=== PATIENT | female | born 1980 | race Caucasian/White ===

== ENCOUNTER 2019-10-12 13:38 | Emergency (ER) | payer MEDICAID ==
[~2019-10-12] VITALS: Ht 170.2 cm; Wt 116.0 kg
[2019-10-12 13:56] VITALS: BP 152/99
[2019-10-12] MEDS ORDERED: ipratropium/albuterol 3ml nebule NEB ONE (16:15)
[2019-10-12] MEDS ORDERED: PRED20TA PO (16:46)
[2019-10-12] MEDS ORDERED: ALBU8HFA PO (16:46)
[2019-10-12] MEDS ORDERED: TAM75C PO (16:46)
== END 2019-10-12 16:57 | disposition home or self-care (01) ==
LOC: ER 13:40
DX: J06.9 Acute upper respiratory infection, unspecified (principal); J45.901 Unspecified asthma with (acute) exacerbation; Z79.899 Other long term (current) drug therapy
CPT/HCPCS: 71045; 87502; 87503; 94640; 94760; 99284

== ENCOUNTER → 2020-01-02 | Emergency (ER) | payer MEDICAID ==
[~2020-01-02] VITALS: Ht 170.2 cm; Wt 113.6 kg
[2020-01-02 14:09] VITALS: BP 114/90
[2020-01-02 15:48] LABS: BASOPHILS # (AUTO) 0.1 X10'3 (0-0.2); BASOPHILS % (AUTO) 1.1 % (0-1); EOSINOPHILS # (AUTO) 0.3 X10'3 (0-0.9); EOSINOPHILS % (AUTO) 2.8 % (0-6); HEMATOCRIT 50.4 % (35.0-45.0); HEMOGLOBIN 16.5 g/dl (12.0-16.0); LYMPHOCYTES # (AUTO) 1.9 X10'3 (1.1-4.8); LYMPHOCYTES % (AUTO) 18.3 % (21-51); MEAN CORPUSCULAR HEMOGLOBIN 30.3 PG (27.0-31.0); MEAN CORPUSCULAR HGB CONC 32.8 g/dL (33.0-36.5); MEAN CORPUSCULAR VOLUME 92.2 FL (78-98); MEAN PLATELET VOLUME 7.7 FL (7.4-10.4); MONOCYTES # (AUTO) 0.7 X10'3 (0-0.9); MONOCYTES % (AUTO) 6.5 % (2-12); NEUTROPHILS # (AUTO) 7.3 X10'3 (1.8-7.7); NEUTROPHILS % (AUTO) 71.3 % (42-75); PLATELET COUNT 457 X10'3 (140-440); RED BLOOD COUNT 5.46 X10'6 (4.20-5.60); RED CELL DISTRIBUTION WIDTH 14.1 % (11.5-14.5); WHITE BLOOD COUNT 10.3 X10'3 (4.5-11.0)
[2020-01-02 15:59] LABS: ALANINE AMINOTRANSFERASE 19 U/L (12-78); ALBUMIN 4.1 G/DL (3.4-5.0); ALBUMIN/GLOBULIN RATIO 0.8 (1.1-1.5); ALKALINE PHOSPHATASE 122 IU/L (46-116); ANION GAP 12 (8-16); ASPARTATE AMINO TRANSFERASE 12 U/L (10-37); BILIRUBIN,TOTAL 0.3 MG/DL (0.1-1.0); BLOOD UREA NITROGEN 13 MG/DL (7-18); BUN/CREATININE RATIO 9.8 (6.6-38.0); CALCIUM 9.7 MG/DL (8.5-10.1); CHLORIDE 102 MMOL/L (99-107); CREATININE 1.32 MG/DL (0.40-0.90); GLUCOSE 103 MG/DL (70-104); POTASSIUM 3.9 MMOL/L (3.5-5.1); SODIUM 142 MMOL/L (135-145); TOTAL CARBON DIOXIDE 27.8 MMOL/L (24-32); eGFR 44 ML/MIN
[2020-01-02 16:05] LABS: BETA HCG,QUANTITATIVE < 1.0 mIU/ml; C-REACTIVE PROTEIN 1.59 MG/DL (0.0-0.5)
--- NOTE | 2020-01-02 16:08 | NUR ---
Pt stated that she would like to leave. I asked her if she would be willing to stay to speak with the providers to which she agreed.
--- NOTE | 2020-01-02 16:13 | NUR ---
Pt got up and stated to me that she was not willing to stay any longer. Ambulated out of the department with a steady gait.
== END | disposition left against medical advice (07) ==
LOC: ER 14:06
DX: M25.532 Pain in left wrist (principal); J45.909 Unspecified asthma, uncomplicated; F15.90 Other stimulant use, unspecified, uncomplicated; F11.90 Opioid use, unspecified, uncomplicated
CPT/HCPCS: 36415; 73110; 80053; 84702; 85025; 85651; 86140; 99284

== ENCOUNTER 2020-10-05 10:44 | Emergency (ER) | payer MEDICAID ==
[~2020-10-05] VITALS: Ht 170.2 cm; Wt 113.6 kg
[~2020-10-05 10:44] MED LIST: ALBU18HF2 INH; BUPR150T8 PO; BUPR8TAB4 SL; CARI350T PO; CITA20TA27; CLON-371; CLON-527 PO; FLUT1AER3; PALI234D IM; QUET100T33; TOPI50TA PO; ZOLP10TA5 PO
[2020-10-05 11:12] VITALS: BP 142/88
[2020-10-05 11:48] LABS: BASOPHILS # (AUTO) 0.1 X10'3 (0-0.2); BASOPHILS % (AUTO) 0.9 % (0-1); EOSINOPHILS # (AUTO) 0.1 X10'3 (0-0.9); EOSINOPHILS % (AUTO) 2.3 % (0-6); HEMATOCRIT 45.9 % (35.0-45.0); HEMOGLOBIN 15.7 g/dl (12.0-16.0); LYMPHOCYTES # (AUTO) 1.9 X10'3 (1.1-4.8); LYMPHOCYTES % (AUTO) 29.2 % (21-51); MEAN CORPUSCULAR HEMOGLOBIN 30.3 PG (27.0-31.0); MEAN CORPUSCULAR HGB CONC 34.3 g/dL (33.0-36.5); MEAN CORPUSCULAR VOLUME 88.4 FL (78-98); MEAN PLATELET VOLUME 7.7 FL (7.4-10.4); MONOCYTES # (AUTO) 0.4 X10'3 (0-0.9); MONOCYTES % (AUTO) 6.8 % (2-12); NEUTROPHILS % (AUTO) 60.8 % (42-75); PLATELET COUNT 249 X10'3 (140-440); RED BLOOD COUNT 5.19 X10'6 (4.20-5.60); RED CELL DISTRIBUTION WIDTH 14.1 % (11.5-14.5); WHITE BLOOD COUNT 6.5 X10'3 (4.5-11.0)
[2020-10-05 12:05] LABS: ALANINE AMINOTRANSFERASE 26 U/L (12-78); ALBUMIN/GLOBULIN RATIO 0.9 (1.1-1.5); ALKALINE PHOSPHATASE 99 IU/L (46-116); ANION GAP 7 (8-16); ASPARTATE AMINO TRANSFERASE 22 U/L (10-37); BILIRUBIN,TOTAL 0.5 MG/DL (0.1-1.0); BLOOD UREA NITROGEN 9 MG/DL (7-18); BUN/CREATININE RATIO 8.3 (6.6-38.0); CALCIUM 9.5 MG/DL (8.5-10.1); CHLORIDE 101 MMOL/L (99-107); CREATININE 1.08 MG/DL (0.40-0.90); GLUCOSE 107 MG/DL (70-104); POTASSIUM 4.3 MMOL/L (3.5-5.1); SODIUM 136 MMOL/L (135-145); TOTAL CARBON DIOXIDE 28.1 MMOL/L (24-32); TOTAL PROTEIN 8.3 G/DL (6.4-8.2); eGFR 56 ML/MIN
[2020-10-05] MEDS ORDERED: meclizine 12.5mg tablet PO ONE (12:25)
[2020-10-05] MEDS ORDERED: LORazepam 1 MG tablet PO ONE (12:25)
[2020-10-05] MEDS ORDERED: methadone 10mg tablet PO ONE (12:30)
[2020-10-05] MEDS ORDERED: ondansetron 4mg rapidly disintigrating tab PO ONE (13:25)
[2020-10-05] MEDS ORDERED: ONDA4TAB6 PO (14:03)
[2020-10-05] MEDS ORDERED: MECL-159 PO (14:03)
[2020-10-05] MEDS ORDERED: LORA-269 PO (14:03)
== END 2020-10-05 14:09 | disposition home or self-care (01) ==
LOC: ER 10:44
DX: H81.11 Benign paroxysmal vertigo, right ear (principal); Z88.0 Allergy status to penicillin; Z88.6 Allergy status to analgesic agent; Z79.899 Other long term (current) drug therapy
CPT/HCPCS: 36415; 71045; 80053; 83880; 84484; 85025; 93005; 99285; J8597

== ENCOUNTER 2023-11-12 18:00 | Emergency (ER) | payer MEDICAID ==
[~2023-11-12] VITALS: Ht 170.2 cm; Wt 133.3 kg
[~2023-11-12 18:00] MED LIST changes: +LORA-269 PO; +MECL-302 PO; +ONDA4TAB6 PO; -QUET100T33; +QUET100T34
[2023-11-12 19:24] LABS: ALBUMIN 3.8 G/DL (3.4-5.0); ANION GAP 12 (8-16); BLOOD UREA NITROGEN 13 MG/DL (7-18); BUN/CREATININE RATIO 9.4 (10.0-20.0); CALCIUM 9.7 MG/DL (8.5-10.1); CHLORIDE 104 MMOL/L (99-107); CREATININE 1.38 MG/DL (0.40-0.90); GLUCOSE 93 MG/DL (70-104); POTASSIUM 3.9 MMOL/L (3.5-5.1); PRO BRAIN NATRIURETIC PEPTIDE 127 PG/ML (0-125); SODIUM 141 MMOL/L (135-145); TOTAL CARBON DIOXIDE 25.4 MMOL/L (24-32); eCRCL 50 ML/MIN; eGFR 41 ML/MIN
[2023-11-12 20:01] LABS: BASOPHILS # (AUTO) 0.1 X10'3 (0-0.2); BASOPHILS % (AUTO) 1.1 % (0-1); EOSINOPHILS # (AUTO) 0.3 X10'3 (0-0.9); EOSINOPHILS % (AUTO) 2.8 % (0-6); HEMOGLOBIN 15.1 g/dl (12.0-16.0); LYMPHOCYTES # (AUTO) 2.4 X10'3 (1.1-4.8); LYMPHOCYTES % (AUTO) 21.8 % (21-51); MEAN CORPUSCULAR HEMOGLOBIN 29.2 PG (27.0-31.0); MEAN CORPUSCULAR HGB CONC 33.6 g/dL (33.0-36.5); MEAN CORPUSCULAR VOLUME 86.9 FL (78-98); MEAN PLATELET VOLUME 7.7 FL (7.4-10.4); MONOCYTES # (AUTO) 0.6 X10'3 (0-0.9); MONOCYTES % (AUTO) 5.4 % (2-12); NEUTROPHILS # (AUTO) 7.6 X10'3 (1.8-7.7); NEUTROPHILS % (AUTO) 68.9 % (42-75); PLATELET COUNT 392 X10'3 (140-440); RED BLOOD COUNT 5.18 X10'6 (4.20-5.60); RED CELL DISTRIBUTION WIDTH 13.2 % (11.5-14.5)
[2023-11-12] MEDS ORDERED: iohexol 350MG/ML 100ml bottle IV ONE (22:35)
[2023-11-12 23:12] LABS: HCG SERUM QL NEGATIVE
[2023-11-12 23:17] LABS: D-DIMER 0.41 MG/L FEU (0-0.50)
[2023-11-12 23:58] VITALS: PULSE 86
[2023-11-13 00:11] VITALS: BP 149/92; RESP 18; TEMP 98.8; O2SAT 96
== END 2023-11-12 23:58 | disposition home or self-care (01) ==
LOC: ER 18:00
DX: R07.89 Other chest pain (principal); J45.909 Unspecified asthma, uncomplicated; F15.90 Other stimulant use, unspecified, uncomplicated; Z88.0 Allergy status to penicillin; Z88.5 Allergy status to narcotic agent; Z79.899 Other long term (current) drug therapy
CPT/HCPCS: 36415; 71045; 71275; 80048; 83880; 84484; 84703; 85025; 85379; 93005; 99285; Q9967